=== PATIENT | female | born 1960 | race Caucasian/White ===

== ENCOUNTER → 2023-12-21 08:15 | Outpatient (REF) | payer BC, SELFPAY | LOC: RAD 08:15 | PROVIDERS: ATTENDING PHYSICIAN Physician Assistant; FAMILY PHYSICIAN Internal Medicine | DX: M81.0 Age-related osteoporosis without current pathological fracture (principal); D47.2 Monoclonal gammopathy; E55.9 Vitamin D deficiency, unspecified; E83.52 Hypercalcemia; T14.8XXA Other injury of unspecified body region, initial encounter; Z51.81 Encounter for therapeutic drug level monitoring; Z82.62 Family history of osteoporosis | CPT/HCPCS: 77080 ==

== ENCOUNTER → 2024-01-10 11:05 | Outpatient (REF) | payer BC, SELFPAY | LOC: RAD 11:05 | PROVIDERS: ATTENDING PHYSICIAN Internal Medicine | DX: R07.81 Pleurodynia (principal); R07.1 Chest pain on breathing | CPT/HCPCS: 71046; 71100 ==

== ENCOUNTER → 2024-01-11 16:29 | Outpatient (REF) | payer BC, SELFPAY | LOC: RAD 16:29 | PROVIDERS: ATTENDING PHYSICIAN Internal Medicine | DX: U07.1 COVID-19 (principal); R09.1 Pleurisy; M81.0 Age-related osteoporosis without current pathological fracture | CPT/HCPCS: 71275; Q9967 ==

== ENCOUNTER → 2024-03-07 11:17 | Outpatient (REF) | payer BC, SELFPAY | LOC: WDC 11:17 | PROVIDERS: ATTENDING PHYSICIAN Internal Medicine | DX: Z12.39 Encounter for other screening for malignant neoplasm of breast (principal); Z12.31 Encounter for screening mammogram for malignant neoplasm of breast | CPT/HCPCS: 77063; 77067 ==

== ENCOUNTER → 2024-03-10 13:55 | Outpatient (REF) | payer BC, SELFPAY | LOC: WDC 13:55 | PROVIDERS: ATTENDING PHYSICIAN Internal Medicine | DX: R92.30 Dense breasts, unspecified (principal) | CPT/HCPCS: 76641 ==

== ENCOUNTER → 2024-03-14 16:00 | Outpatient (REF) | payer BC, SELFPAY | LOC: RAD 16:00 | PROVIDERS: ATTENDING PHYSICIAN Internal Medicine | DX: R80.9 Proteinuria, unspecified (principal) | CPT/HCPCS: 76775 ==

== ENCOUNTER → 2025-05-16 14:10 | Outpatient (REF) | payer MEDICARE, SELFPAY | LOC: WDC 14:10 | PROVIDERS: ATTENDING PHYSICIAN Internal Medicine | DX: Z12.39 Encounter for other screening for malignant neoplasm of breast (principal); Z12.31 Encounter for screening mammogram for malignant neoplasm of breast | CPT/HCPCS: 77063; 77067 ==